=== PATIENT | female | born 1935 | race African-American/Black ===

== ENCOUNTER 2021-07-29 07:05 | Inpatient (IN) | payer MEDICARE, MEDICAID ==
[~2021-07-29] VITALS: Ht 167.6 cm; Wt 56.2 kg
[~2021-07-29 07:05] MED LIST: ALBUTEROL INH; ASPI-1073 PO; ATEN50TA PO; ATOR20TA PO; EVIS60 PO; FELO10TA45 PO; FURO-152 PO; KV10 PO; LEVO500T2 PO; MONT10TA21 PO; P20 PO; amlodipine PO
[2021-07-29 07:30] LABS: BASOPHILS % 0.3 % (0.0-2.0); EOSINOPHILS % 0.1 % (0.0-5.0); HEMATOCRIT. 35.6 % (36.0-48.0); HEMOGLOBIN. 11.9 g/dL (12.0-16.0); LYMPHOCYTES % 15.8 % (20.0-50.0); MEAN CORPUSCULAR HEMOGLOBIN 27.2 pg (28.0-32.0); MEAN CORPUSCULAR VOLUME 81.4 fL (81.0-99.0); MEAN PLATELET VOLUME 9.5 fl (7.4-10.4); MONOCYTES % 6.6 % (2.0-8.0); NEUTROPHILS % 77.2 % (40.0-76.0); PLATELET 164 x1000/uL (130-400); RED BLOOD CELL COUNT 4.38 mill/uL (4.2-5.4); RED CELL DISTRIBUTION WIDTH 19.6 % (11.6-14.6)
[2021-07-29 07:37] LABS: CHLORIDE 96 mEq/L (98-107)
[2021-07-29] MEDS ORDERED: METHYLPREDNISOLONE SOD SUCC 125 MG/2 ML VIAL IV STA (08:37)
[2021-07-29] MEDS: ASPIRIN 81MG TABLET PO ONE ×2 (08:45→08:53)
[2021-07-29] MEDS ORDERED: FUROSEMIDE 40MG/4ML VIAL IV ONE (08:45)
[2021-07-29 09:10] LABS: BG BASE EXCESS 23.4 mmol/L (-2.0-2.0); BG CARBOXYHEMOGLOBIN 0.4 % (0.5-1.5); BG DEOXYHEMOGLOBIN 8.2 % (0.0-5.0); BG FRACTION INSPIRED OXYGEN 40; BG HCO3 ACT 53.9 mmol/L (22.0-26.0); BG METHEMOGLOBIN 0.3 % (0.0-1.5); BG OXYGEN SATURATION 91.7 % (92.0-98.5); BG OXYHEMOGLOBIN 91.1 % (94.0-97.0); BG PH 7.367 (7.350-7.450); BG PO2 67.5 mmHg (75.0-100.0); BG SAMPLE SITE RIGHT RADIAL; BG TOTAL HEMOGLOBIN 12.3 g/dL (12.0-18.0); BG VENT MODE NASAL CANNULA
[2021-07-29 16:00] VITALS: BP 123/77
[2021-07-29] MEDS ORDERED: EVIS60 MT (16:15)
[2021-07-29] MEDS ORDERED: SENN-155 PO (16:15)
[2021-07-29] MEDS ORDERED: DIGO125T80 PO (16:15)
[2021-07-29] MEDS ORDERED: APIX2.5T PO (16:15)
[2021-07-29] MEDS ORDERED: PANT40TA51 PO (16:15)
[2021-07-29] MEDS ORDERED: METO-539 PO (16:16)
[2021-07-29 16:47] VITALS: BP 123/77
[2021-07-29] MEDS ORDERED: ONDANSETRON HCL 4MG/2ML INJ IV PRN (17:45)
[2021-07-29 18:00] VITALS: BP 101/58
[2021-07-29 19:06] LABS: INR 1.2; PROTHROMBIN TIME 12.8 sec (9.6-11.0)
[2021-07-29 20:00] VITALS: BP 124/66
[2021-07-29] MEDS: ENOXAPARIN 60MG/0.6ML SYR SUBCUT SCH (20:06)
[2021-07-29 22:00] VITALS: BP 145/70
[2021-07-29 23:55] VITALS: BP 99/62
[2021-07-30] VITALS (11 sets, daily range): BP systolic 109–172; BP diastolic 64–95
[2021-07-30 07:29] LABS: CHLORIDE 95 mEq/L (98-107)
[2021-07-30] MEDS: ENOXAPARIN 60MG/0.6ML SYR SUBCUT SCH ×2 (08:00→21:25)
[2021-07-30] MEDS ORDERED: FUROSEMIDE 40MG/4ML VIAL IVP SCH (09:00)
[2021-07-30] MEDS: SPIRONOLACTONE 25MG TABLET PO SCH (10:15)
[2021-07-30 12:50] LABS: BG BASE EXCESS 13.2 mmol/L (-2.0-2.0); BG CARBOXYHEMOGLOBIN 0.3 % (0.5-1.5); BG DEOXYHEMOGLOBIN 6.7 % (0.0-5.0); BG HCO3 ACT 39.3 mmol/L (22.0-26.0); BG METHEMOGLOBIN 0.6 % (0.0-1.5); BG OXYGEN SATURATION 93.2 % (92.0-98.5); BG OXYHEMOGLOBIN 92.4 % (94.0-97.0); BG PCO2 56.2 mmHg (35.0-45.0); BG PH 7.462 (7.350-7.450); BG PO2 68.9 mmHg (75.0-100.0); BG SAMPLE SITE RIGHT BRACHIAL; BG TOTAL HEMOGLOBIN 12.6 g/dL (12.0-18.0); BG VENT MODE MASK - BIPAP
[2021-07-30] MEDS: METHYLPREDNISOLONE SOD SUCC 40 MG/ML VIAL IV SCH ×2 (13:16→21:25)
[2021-07-30] MEDS: METOPROLOL TARTRATE 50MG TABLET PO SCH ×2 (15:04→21:25)
[2021-07-30] MEDS: FUROSEMIDE 40MG/4ML VIAL IVP SCH (18:08)
[2021-07-31] VITALS (12 sets, daily range): BP systolic 98–154; BP diastolic 56–103
[2021-07-31] MEDS: FUROSEMIDE 40MG/4ML VIAL IVP SCH ×2 (05:22→17:35)
[2021-07-31] MEDS: ENOXAPARIN 60MG/0.6ML SYR SUBCUT SCH ×2 (08:38→22:06)
[2021-07-31] MEDS: SPIRONOLACTONE 25MG TABLET PO SCH (08:39)
[2021-07-31] MEDS: METHYLPREDNISOLONE SOD SUCC 40 MG/ML VIAL IV SCH ×2 (08:39→22:01)
[2021-07-31] MEDS: METOPROLOL TARTRATE 50MG TABLET PO SCH (08:39)
[2021-07-31 16:32] LABS: BG BASE EXCESS 22.1 mmol/L (-2.0-2.0); BG CARBOXYHEMOGLOBIN 0.3 % (0.5-1.5); BG DEOXYHEMOGLOBIN 8.4 % (0.0-5.0); BG FRACTION INSPIRED OXYGEN 36; BG HCO3 ACT 50.5 mmol/L (22.0-26.0); BG METHEMOGLOBIN 0.1 % (0.0-1.5); BG OXYGEN SATURATION 91.6 % (92.0-98.5); BG OXYHEMOGLOBIN 91.2 % (94.0-97.0); BG PCO2 76.4 mmHg (35.0-45.0); BG PH 7.438 (7.350-7.450); BG PO2 68.4 mmHg (75.0-100.0); BG SAMPLE SITE RIGHT RADIAL; BG TOTAL HEMOGLOBIN 12.2 g/dL (12.0-18.0); BG VENT MODE NASAL CANNULA
[2021-07-31] MEDS: AMLODIPINE 5MG TABLET PO SCH (17:35)
[2021-07-31] MEDS: ACETAMINOPHEN 325MG TABLET PO PRN (23:20)
[2021-08-01] VITALS (12 sets, daily range): BP systolic 101–162; BP diastolic 69–118
[2021-08-01] MEDS: FUROSEMIDE 40MG/4ML VIAL IVP SCH ×2 (05:55→17:49)
[2021-08-01] MEDS: METHYLPREDNISOLONE SOD SUCC 40 MG/ML VIAL IV SCH ×2 (08:58→20:43)
[2021-08-01] MEDS: ENOXAPARIN 60MG/0.6ML SYR SUBCUT SCH ×2 (08:58→20:47)
[2021-08-01] MEDS: SPIRONOLACTONE 25MG TABLET PO SCH (09:00)
[2021-08-01] MEDS: AMLODIPINE 5MG TABLET PO SCH (09:00)
[2021-08-01 10:45] LABS: HEMOGLOBIN. 12.9 g/dL (12.0-16.0); MEAN CORPUSCULAR HEMOGLOBIN 26.9 pg (28.0-32.0); MEAN CORPUSCULAR VOLUME 81.3 fL (81.0-99.0); MEAN PLATELET VOLUME 9.5 fl (7.4-10.4); PLATELET 189 x1000/uL (130-400); RED CELL DISTRIBUTION WIDTH 19.7 % (11.6-14.6)
[2021-08-01 10:46] LABS: CHLORIDE 89 mEq/L (98-107)
[2021-08-01] MEDS: POTASSIUM CHLORIDE 20MEQ TABLET SR PO SCH ×3 (12:11→17:49)
[2021-08-01 15:34] LABS: BG BASE EXCESS 22.7 mmol/L (-2.0-2.0); BG CARBOXYHEMOGLOBIN 0.4 % (0.5-1.5); BG DEOXYHEMOGLOBIN 8.9 % (0.0-5.0); BG FRACTION INSPIRED OXYGEN 32; BG HCO3 ACT 49.9 mmol/L (22.0-26.0); BG METHEMOGLOBIN 0.4 % (0.0-1.5); BG OXYHEMOGLOBIN 90.3 % (94.0-97.0); BG PH 7.496 (7.350-7.450); BG SAMPLE SITE LEFT RADIAL; BG TOTAL HEMOGLOBIN 12.6 g/dL (12.0-18.0); BG VENT MODE NASAL CANNULA
[2021-08-01 16:51] LABS: PLATELET ESTIMATE NORMAL
[2021-08-02] VITALS (12 sets, daily range): BP systolic 118–159; BP diastolic 65–108
[2021-08-02] MEDS: FUROSEMIDE 40MG/4ML VIAL IVP SCH ×2 (06:16→11:11)
[2021-08-02 08:21] LABS: BG BASE EXCESS 26.8 mmol/L (-2.0-2.0); BG CARBOXYHEMOGLOBIN 0.5 % (0.5-1.5); BG DEOXYHEMOGLOBIN 4.1 % (0.0-5.0); BG FRACTION INSPIRED OXYGEN 40; BG HCO3 ACT 54.6 mmol/L (22.0-26.0); BG METHEMOGLOBIN 0.3 % (0.0-1.5); BG OXYGEN SATURATION 95.9 % (92.0-98.5); BG OXYHEMOGLOBIN 95.1 % (94.0-97.0); BG PCO2 68.6 mmHg (35.0-45.0); BG PH 7.519 (7.350-7.450); BG PO2 82.9 mmHg (75.0-100.0); BG SAMPLE SITE LEFT BRACHIAL; BG TOTAL HEMOGLOBIN 13.4 g/dL (12.0-18.0); BG TOTAL RESPIRATORY RATE 20 b/min; BG VENT MODE MASK - BIPAP
[2021-08-02] MEDS: METHYLPREDNISOLONE SOD SUCC 40 MG/ML VIAL IV SCH ×2 (08:50→20:54)
[2021-08-02] MEDS: ENOXAPARIN 60MG/0.6ML SYR SUBCUT SCH ×2 (08:50→20:54)
[2021-08-02] MEDS: AMLODIPINE 5MG TABLET PO SCH (08:50)
[2021-08-02] MEDS: SPIRONOLACTONE 25MG TABLET PO SCH (08:51)
[2021-08-02] MEDS ORDERED: POTASSIUM CHLORIDE 20MEQ/PACKET PO NR (11:00)
[2021-08-02 17:19] LABS: CHLORIDE 89 mEq/L (98-107)
[2021-08-03] VITALS (12 sets, daily range): BP systolic 104–159; BP diastolic 46–95
[2021-08-03] MEDS: ACETAMINOPHEN 325MG TABLET PO PRN (02:56)
[2021-08-03] MEDS: ENOXAPARIN 60MG/0.6ML SYR SUBCUT SCH ×2 (08:29→22:23)
[2021-08-03] MEDS: METHYLPREDNISOLONE SOD SUCC 40 MG/ML VIAL IV SCH ×2 (08:29→22:23)
[2021-08-03] MEDS: AMLODIPINE 5MG TABLET PO SCH (08:30)
[2021-08-03] MEDS: SPIRONOLACTONE 25MG TABLET PO SCH (08:30)
[2021-08-03] MEDS: FUROSEMIDE 40MG/4ML VIAL IVP SCH (08:30)
[2021-08-03] MEDS: METOPROLOL TARTRATE 25MG TABLET PO SCH ×2 (08:33→22:26)
[2021-08-03 09:07] LABS: BG BASE EXCESS 12.7 mmol/L (-2.0-2.0); BG CARBOXYHEMOGLOBIN 0.5 % (0.5-1.5); BG DEOXYHEMOGLOBIN 13.2 % (0.0-5.0); BG FRACTION INSPIRED OXYGEN 36; BG METHEMOGLOBIN 0.2 % (0.0-1.5); BG OXYGEN SATURATION 86.7 % (92.0-98.5); BG OXYHEMOGLOBIN 86.1 % (94.0-97.0); BG PCO2 58.1 mmHg (35.0-45.0); BG PH 7.445 (7.350-7.450); BG PO2 57.1 mmHg (75.0-100.0); BG SAMPLE SITE LEFT RADIAL; BG TOTAL HEMOGLOBIN 12.5 g/dL (12.0-18.0); BG VENT MODE NASAL CANNULA
[2021-08-04] VITALS (12 sets, daily range): BP systolic 108–131; BP diastolic 70–91
[2021-08-04] MEDS: SPIRONOLACTONE 25MG TABLET PO SCH (08:01)
[2021-08-04] MEDS: METOPROLOL TARTRATE 25MG TABLET PO SCH (08:02)
[2021-08-04] MEDS: AMLODIPINE 5MG TABLET PO SCH (08:02)
[2021-08-04] MEDS: FUROSEMIDE 40MG TABLET PO SCH (08:06)
[2021-08-04] MEDS: METHYLPREDNISOLONE SOD SUCC 40 MG/ML VIAL IV SCH (08:06)
[2021-08-04] MEDS: ENOXAPARIN 60MG/0.6ML SYR SUBCUT SCH ×2 (08:07→21:06)
[2021-08-04] MEDS ORDERED: PREDNISONE 20MG TABLET PO SCH (15:00)
[2021-08-04 16:57] LABS: BASOPHILS % 0.1 % (0.0-2.0); HEMOGLOBIN. 13.4 g/dL (12.0-16.0); LYMPHOCYTES % 13.8 % (20.0-50.0); MEAN CORPUSCULAR HEMOGLOBIN 26.9 pg (28.0-32.0); MEAN CORPUSCULAR VOLUME 80.2 fL (81.0-99.0); MONOCYTES % 8.9 % (2.0-8.0); NEUTROPHILS % 77.2 % (40.0-76.0); PLATELET 196 x1000/uL (130-400); RED BLOOD CELL COUNT 4.99 mill/uL (4.2-5.4); RED CELL DISTRIBUTION WIDTH 19.5 % (11.6-14.6)
[2021-08-04 17:03] LABS: CHLORIDE 88 mEq/L (98-107)
[2021-08-04] MEDS: IPRATROPIUM/ALBUTEROL 0.5-3(2.5)MG/3ML NEB HHN SCH (19:42)
[2021-08-05] VITALS (11 sets, daily range): BP systolic 89–131; BP diastolic 44–78
[2021-08-05] MEDS: IPRATROPIUM/ALBUTEROL 0.5-3(2.5)MG/3ML NEB HHN SCH ×3 (01:04→12:48)
[2021-08-05] MEDS: AMLODIPINE 5MG TABLET PO SCH (08:16)
[2021-08-05] MEDS: FUROSEMIDE 40MG TABLET PO SCH (08:48)
[2021-08-05] MEDS: ENOXAPARIN 60MG/0.6ML SYR SUBCUT SCH (08:49)
[2021-08-05] MEDS: SPIRONOLACTONE 25MG TABLET PO SCH (08:49)
[2021-08-05] MEDS ORDERED: PREDNISONE 20MG TABLET PO SCH (09:00)
[2021-08-06] MEDS ORDERED: PREDNISONE 20MG TABLET PO SCH (08:00)
== END 2021-08-05 20:20 | DRG 280 ==
LOC: ER 07:05 → 5EST 09:36 → EDBEDREQ 09:55 → EDBEDREQTM 09:55 → ENRESERV 13:01 → EDBEDREQSVC 14:59
PROVIDERS: ADMIT Internal Medicine; ATTEND Internal Medicine
PROC: 5A09557 Assistance with Respiratory Ventilation, Greater than 96 Consecutive Hours, Continuous Positive Airway Pressure (ICD-10-PCS; principal; 2021-07-29)
DX: I11.0 Hypertensive heart disease with heart failure (principal); I21.4 Non-ST elevation (NSTEMI) myocardial infarction; J96.21 Acute and chronic respiratory failure with hypoxia; J96.22 Acute and chronic respiratory failure with hypercapnia; I50.33 Acute on chronic diastolic (congestive) heart failure; E44.0 Moderate protein-calorie malnutrition; I48.20 Chronic atrial fibrillation, unspecified; E87.4 Mixed disorder of acid-base balance; D68.69 Other thrombophilia; J98.01 Acute bronchospasm; I34.0 Nonrheumatic mitral (valve) insufficiency; R13.10 Dysphagia, unspecified; R00.1 Bradycardia, unspecified; I27.20 Pulmonary hypertension, unspecified; Z20.822 Contact with and (suspected) exposure to COVID-19; R79.89 Other specified abnormal findings of blood chemistry; E78.5 Hyperlipidemia, unspecified; J44.9 Chronic obstructive pulmonary disease, unspecified; I16.0 Hypertensive urgency; K21.9 Gastro-esophageal reflux disease without esophagitis; I69.391 Dysphagia following cerebral infarction; Z68.20 Body mass index [BMI] 20.0-20.9, adult; Z79.899 Other long term (current) drug therapy
CPT/HCPCS: 36415; 36600; 71045; 80048; 80053; 82375; 82805; 83735; 83880; 84484; 85025; 87426; 93005; 93306; 94640; 94660; 99291; J1650; J1940; J2405; J2920; J2930; J7512

== ENCOUNTER 2021-08-10 09:35 | Inpatient (IN) | payer MEDICARE, MEDICAID ==
[~2021-08-10] VITALS: Ht 167.6 cm; Wt 49.9 kg
[~2021-08-10 09:35] MED LIST changes: +APIX2.5T PO; +DIGO125T80 PO; +EVIS60 MT; +METO-539 PO; +PANT40TA51 PO; +SENN-155 PO
[2021-08-10 10:43] LABS: BASOPHILS % 0.2 % (0.0-2.0); EOSINOPHILS % 0.5 % (0.0-5.0); HEMATOCRIT. 44.6 % (36.0-48.0); HEMOGLOBIN. 14.7 g/dL (12.0-16.0); LYMPHOCYTES % 10.8 % (20.0-50.0); MEAN CORPUSCULAR HEMOGLOBIN 26.5 pg (28.0-32.0); MEAN CORPUSCULAR VOLUME 80.6 fL (81.0-99.0); MEAN PLATELET VOLUME 8.8 fl (7.4-10.4); MONOCYTES % 7.8 % (2.0-8.0); NEUTROPHILS % 80.7 % (40.0-76.0); PLATELET 246 x1000/uL (130-400); RED BLOOD CELL COUNT 5.53 mill/uL (4.2-5.4)
[2021-08-10 10:48] LABS: CHLORIDE 93 mEq/L (98-107)
[2021-08-10] MEDS ORDERED: ASPIRIN 325MG EC TABLET PO NR (11:45)
[2021-08-10] MEDS ORDERED: ACETAZOLAMIDE SODIUM 500MG/VIAL IV NR (12:30)
[2021-08-10 13:35] LABS: BG BASE EXCESS 22.9 mmol/L (-2.0-2.0); BG CARBOXYHEMOGLOBIN 0.4 % (0.5-1.5); BG DEOXYHEMOGLOBIN 4.1 % (0.0-5.0); BG FRACTION INSPIRED OXYGEN 32; BG HCO3 ACT 50.9 mmol/L (22.0-26.0); BG METHEMOGLOBIN 0.4 % (0.0-1.5); BG OXYGEN SATURATION 95.9 % (92.0-98.5); BG OXYHEMOGLOBIN 95.1 % (94.0-97.0); BG PCO2 70.2 mmHg (35.0-45.0); BG PH 7.478 (7.350-7.450); BG PO2 94.5 mmHg (75.0-100.0); BG SAMPLE SITE RIGHT RADIAL; BG TOTAL HEMOGLOBIN 13.5 g/dL (12.0-18.0); BG VENT MODE NASAL CANNULA
[2021-08-10] MEDS ORDERED: LEVOFLOXACIN 750MG PREMIX 150 ML IV NR (14:00)
[2021-08-10 22:28] VITALS: BP 94/58
[2021-08-11] VITALS: BP 97/53
[2021-08-11] MEDS ORDERED: IPRATROPIUM/ALBUTEROL 0.5-3(2.5)MG/3ML NEB HHN PRN (01:30)
[2021-08-11 04:00] VITALS: BP 104/62
[2021-08-11 07:11] LABS: CHLORIDE 97 mEq/L (98-107)
[2021-08-11 07:22] LABS: HEMATOCRIT. 37.5 % (36.0-48.0); HEMOGLOBIN. 12.1 g/dL (12.0-16.0); MEAN CORPUSCULAR HEMOGLOBIN 26.3 pg (28.0-32.0); MEAN CORPUSCULAR VOLUME 81.2 fL (81.0-99.0); MEAN PLATELET VOLUME 9.3 fl (7.4-10.4); PLATELET 244 x1000/uL (130-400); RED BLOOD CELL COUNT 4.62 mill/uL (4.2-5.4); RED CELL DISTRIBUTION WIDTH 20.1 % (11.6-14.6)
[2021-08-11 08:00] VITALS: BP 104/69
[2021-08-11] MEDS: FUROSEMIDE 40MG/4ML VIAL IVP SCH (08:56)
[2021-08-11] MEDS: APIXABAN 2.5 MG TABLET PO SCH ×2 (08:56→17:33)
[2021-08-11] MEDS: DIGOXIN 125MCG TABLET PO SCH (08:56)
[2021-08-11] MEDS: ATORVASTATIN CALCIUM 20MG TABLET PO SCH (08:56)
[2021-08-11] MEDS: ATENOLOL 50 MG TABLET PO SCH (08:57)
[2021-08-11] MEDS ORDERED: POTASSIUM CHLORIDE INJ 40 MEQ in DEXT 5% WATER 250 ML IV NR (09:00)
[2021-08-11] MEDS ORDERED: LEVOFLOXACIN 500MG PREMIX 100 ML IV SCH (09:00)
[2021-08-11 11:02] LABS: BG BASE EXCESS 15.8 mmol/L (-2.0-2.0); BG CARBOXYHEMOGLOBIN 0.8 % (0.5-1.5); BG DEOXYHEMOGLOBIN 9.3 % (0.0-5.0); BG FRACTION INSPIRED OXYGEN 32; BG HCO3 ACT 40.9 mmol/L (22.0-26.0); BG METHEMOGLOBIN 0.3 % (0.0-1.5); BG OXYGEN SATURATION 90.6 % (92.0-98.5); BG OXYHEMOGLOBIN 89.6 % (94.0-97.0); BG PCO2 50.8 mmHg (35.0-45.0); BG PH 7.524 (7.350-7.450); BG PO2 60.3 mmHg (75.0-100.0); BG SAMPLE SITE RIGHT BRACHIAL; BG TOTAL HEMOGLOBIN 13.4 g/dL (12.0-18.0); BG VENT MODE NASAL CANNULA
[2021-08-11 11:46] VITALS: BP 92/50
[2021-08-11 16:00] VITALS: BP 103/63
[2021-08-11 18:37] LABS: VITAMIN B12 SERUM 1568 pg/mL (211-911)
[2021-08-11 20:00] VITALS: BP 99/54
[2021-08-11] MEDS ORDERED: ACETAZOLAMIDE SODIUM 500MG/VIAL IV NR (21:00)
[2021-08-11 21:45] LABS: PLATELET ESTIMATE NORMAL
[2021-08-12] VITALS (7 sets, daily range): BP systolic 91–132; BP diastolic 52–73
[2021-08-12] MEDS: ACETYLCYSTEINE 100MG/ML 10% VIAL 4ML INH SCH ×3 (04:08→14:35)
[2021-08-12] MEDS: IPRATROPIUM/ALBUTEROL 0.5-3(2.5)MG/3ML NEB HHN SCH ×4 (04:08→19:49)
[2021-08-12 09:17] LABS: BG BASE EXCESS 12.2 mmol/L (-2.0-2.0); BG CARBOXYHEMOGLOBIN 0.6 % (0.5-1.5); BG DEOXYHEMOGLOBIN 3.6 % (0.0-5.0); BG FRACTION INSPIRED OXYGEN 28; BG HCO3 ACT 38.7 mmol/L (22.0-26.0); BG METHEMOGLOBIN 0.4 % (0.0-1.5); BG OXYGEN SATURATION 96.4 % (92.0-98.5); BG OXYHEMOGLOBIN 95.4 % (94.0-97.0); BG PCO2 58.3 mmHg (35.0-45.0); BG PO2 91.7 mmHg (75.0-100.0); BG SAMPLE SITE RIGHT BRACHIAL; BG TOTAL HEMOGLOBIN 13.2 g/dL (12.0-18.0); BG VENT MODE NASAL CANNULA
[2021-08-12] MEDS: BUDESONIDE 0.5MG/2ML NEB HHN SCH ×2 (09:28→19:49)
[2021-08-12] MEDS: DIGOXIN 125MCG TABLET PO SCH (09:51)
[2021-08-12] MEDS: APIXABAN 2.5 MG TABLET PO SCH ×2 (09:51→16:34)
[2021-08-12] MEDS: ATENOLOL 50 MG TABLET PO SCH (09:51)
[2021-08-12] MEDS: ATORVASTATIN CALCIUM 20MG TABLET PO SCH (09:51)
[2021-08-12] MEDS: FUROSEMIDE 40MG/4ML VIAL IVP SCH (10:54)
[2021-08-12] MEDS ORDERED: LEVOFLOXACIN 750MG PREMIX 150 ML IV SCH ×2 (11:00→15:00)
[2021-08-12 17:33] LABS: CHLORIDE 99 mEq/L (98-107)
[2021-08-13] VITALS: BP 99/58
[2021-08-13] MEDS: IPRATROPIUM/ALBUTEROL 0.5-3(2.5)MG/3ML NEB HHN SCH (00:32)
[2021-08-13] MEDS: ACETYLCYSTEINE 100MG/ML 10% VIAL 4ML INH SCH (00:33)
[2021-08-13] MEDS ORDERED: FUROSEMIDE 40MG TABLET PO SCH (09:00)
[2021-08-13] MEDS ORDERED: DIGOXIN 125MCG TABLET PO SCH (18:00)
[2021-08-13] MEDS ORDERED: ATORVASTATIN CALCIUM 20MG TABLET PO SCH (21:00)
== END 2021-08-13 01:00 | DRG 189 ==
LOC: ER 09:35 → 6WST 14:36 → EDBEDREQ 14:50 → EDBEDREQTM 14:50 → ENRESERV 17:02 → 6WST 08-11 04:30
PROVIDERS: ADMIT Internal Medicine; ATTEND Internal Medicine
DX: J96.01 Acute respiratory failure with hypoxia (principal); I50.33 Acute on chronic diastolic (congestive) heart failure; E44.0 Moderate protein-calorie malnutrition; G93.40 Encephalopathy, unspecified; I48.20 Chronic atrial fibrillation, unspecified; J44.0 Chronic obstructive pulmonary disease with (acute) lower respiratory infection; J96.02 Acute respiratory failure with hypercapnia; I11.0 Hypertensive heart disease with heart failure; E78.5 Hyperlipidemia, unspecified; E87.6 Hypokalemia; I34.0 Nonrheumatic mitral (valve) insufficiency; F03.90 Unspecified dementia, unspecified severity, without behavioral disturbance, psychotic disturbance, mood disturbance, and anxiety; R00.1 Bradycardia, unspecified; L89.156 Pressure-induced deep tissue damage of sacral region; R13.10 Dysphagia, unspecified; K21.9 Gastro-esophageal reflux disease without esophagitis; Z79.2 Long term (current) use of antibiotics; Z79.899 Other long term (current) drug therapy; Z79.01 Long term (current) use of anticoagulants; I69.391 Dysphagia following cerebral infarction
CPT/HCPCS: 36415; 36600; 70551; 71045; 80048; 80053; 82040; 82375; 82607; 82805; 83735; 83880; 84132; 84134; 84443; 84484; 85025; 93005; 94640; 99291; J1120; J1940; J1956; J3480; J7040; J7060; J7608; J7626

== ENCOUNTER 2022-03-20 13:13 | Inpatient (IN) | payer OTHER, MEDICAID ==
[2022-03-20] VITALS (12 sets, daily range): BP systolic 124–155; BP diastolic 66–118
[~2022-03-20] VITALS: Ht 165.1 cm; Wt 64.0 kg
[2022-03-20] MEDS ORDERED: METHYLPREDNISOLONE SOD SUCC 125 MG/2 ML VIAL IV STA (13:29)
[2022-03-20] MEDS ORDERED: ALBUTEROL 6.7GM HFA INHALER ORI ONE (13:30)
[2022-03-20] MEDS ORDERED: SODIUM CHLORIDE 0.9% 250 ML IV ONE (13:30)
[2022-03-20 14:17] LABS: HEMATOCRIT. 42.8 % (36.0-48.0); HEMOGLOBIN. 14.5 g/dL (12.0-16.0); MEAN CORPUSCULAR HEMOGLOBIN 30.8 pg (28.0-32.0); MEAN CORPUSCULAR VOLUME 91.2 fL (81.0-99.0); MEAN PLATELET VOLUME 9.4 fl (7.4-10.4); PLATELET 191 x1000/uL (130-400); RED BLOOD CELL COUNT 4.69 mill/uL (4.2-5.4); RED CELL DISTRIBUTION WIDTH 16.8 % (11.6-14.6)
[2022-03-20 14:20] LABS: CHLORIDE 98 mEq/L (98-107)
[2022-03-20] MEDS ORDERED: VANCOMYCIN 1G PREMIX 200 ML IV ONE (14:30)
[2022-03-20] MEDS ORDERED: PIPERACILLIN/TAZ 3.375G PREMIX 50 ML IV ONE (14:30)
[2022-03-20 14:50] LABS: PLATELET ESTIMATE NORMAL
[2022-03-20] MEDS ORDERED: ASPIRIN 81MG TABLET PO ONE (15:00)
[2022-03-20] MEDS ORDERED: VANCOMYCIN 1GM PMX (XELLIA) 200 ML IV SCH (15:00)
[2022-03-20 15:23] LABS: CLARITY URINE CLOUDY (CLEAR); COLOR URINE DARK YELLOW (YELLOW); KETONES URINE TRACE (NEGATIVE); LEUKOCYTE ESTERASE URINE TRACE (NEGATIVE); NITRITE URINE NEGATIVE (NEGATIVE); OCCULT BLOOD URINE NEGATIVE (NEGATIVE); PH URINE 5.5 (4.5-8.0); PROTEIN URINE 2+ (NEGATIVE); SPECIFIC GRAVITY URINE 1.024 (1.005-1.030)
[2022-03-20 15:31] LABS: BG CARBOXYHEMOGLOBIN 0.3 % (0.5-1.5); BG DEOXYHEMOGLOBIN 3.8 % (0.0-5.0); BG FRACTION INSPIRED OXYGEN 100; BG HCO3 ACT 37.2 mmol/L (22.0-26.0); BG METHEMOGLOBIN 0.5 % (0.0-1.5); BG OXYGEN SATURATION 96.2 % (92.0-98.5); BG OXYHEMOGLOBIN 95.4 % (94.0-97.0); BG PCO2 49.8 mmHg (35.0-45.0); BG PH 7.491 (7.350-7.450); BG PO2 90.2 mmHg (75.0-100.0); BG SAMPLE SITE RIGHT RADIAL; BG TOTAL HEMOGLOBIN 14.2 g/dL (12.0-18.0); BG TOTAL RESPIRATORY RATE 23 b/min; BG VENT MODE MASK - BIPAP
[2022-03-20 16:58] LABS: INR 1.3; PROTHROMBIN TIME 13.5 sec (9.6-11.0)
[2022-03-20] MEDS ORDERED: CLONIDINE 0.1MG TABLET PO PRN (23:45)
[2022-03-21] VITALS (45 sets, daily range): BP systolic 86–158; BP diastolic 37–96
[2022-03-21] MEDS ORDERED: NALOXONE HCL 0.4MG/ML VIAL IV PRN (00:15)
[2022-03-21] MEDS: SODIUM CHLORIDE 0.45% 1,000 ML IV SCH ×2 (00:27→15:51)
[2022-03-21] MEDS: PIPERACILLIN/TAZOBACTAM 3.375 G in DEXTROSE 5% WATER 50 ML IV SCH ×3 (01:26→20:28)
[2022-03-21 04:48] LABS: HEMATOCRIT. 37.4 % (36.0-48.0); HEMOGLOBIN. 12.6 g/dL (12.0-16.0); MEAN CORPUSCULAR HEMOGLOBIN 30.5 pg (28.0-32.0); MEAN CORPUSCULAR VOLUME 90.6 fL (81.0-99.0); MEAN PLATELET VOLUME 9.5 fl (7.4-10.4); PLATELET 166 x1000/uL (130-400); RED BLOOD CELL COUNT 4.12 mill/uL (4.2-5.4)
[2022-03-21 04:59] LABS: CHLORIDE 101 mEq/L (98-107)
[2022-03-21] MEDS: PANTOPRAZOLE 40MG DR TABLET PO SCH (05:31)
[2022-03-21] MEDS: IPRATROPIUM BROMIDE (0.02%) 0.5MG/2.5ML NEB HHN SCH ×4 (08:07→20:43)
[2022-03-21] MEDS: APIXABAN 2.5 MG TABLET PO SCH ×2 (08:44→17:33)
[2022-03-21] MEDS: METOPROLOL TARTRATE 50MG TABLET PO SCH ×2 (08:45→20:26)
[2022-03-21] MEDS ORDERED: FUROSEMIDE 40MG/4ML VIAL IVP SCH (09:00)
[2022-03-21] MEDS ORDERED: FUROSEMIDE 40MG TABLET PO SCH (09:00)
[2022-03-21] MEDS ORDERED: FUROSEMIDE 20MG TABLET PO SCH (09:00)
[2022-03-21] MEDS ORDERED: ATENOLOL 50 MG TABLET PO SCH (09:00)
[2022-03-21] MEDS ORDERED: PREDNISONE 20MG TABLET PO SCH (09:00)
[2022-03-21 09:40] LABS: T4 FREE 1.28 ng/dL (0.76-1.46)
[2022-03-21 12:24] LABS: NUCLEATED RED BLOOD CELLS 1 /100 WBC; PLATELET ESTIMATE NORMAL
[2022-03-21 13:40] LABS: BG CARBOXYHEMOGLOBIN 0.3 % (0.5-1.5); BG DEOXYHEMOGLOBIN 6.5 % (0.0-5.0); BG FRACTION INSPIRED OXYGEN 36; BG HCO3 ACT 28.6 mmol/L (22.0-26.0); BG METHEMOGLOBIN 0.1 % (0.0-1.5); BG OXYGEN SATURATION 93.5 % (92.0-98.5); BG OXYHEMOGLOBIN 93.1 % (94.0-97.0); BG PCO2 38.5 mmHg (35.0-45.0); BG PH 7.489 (7.350-7.450); BG PO2 68.2 mmHg (75.0-100.0); BG SAMPLE SITE RIGHT RADIAL; BG TOTAL HEMOGLOBIN 12.9 g/dL (12.0-18.0); BG VENT MODE NASAL CANNULA
[2022-03-21 15:05] LABS: CREATINE KINASE MB FRACTION 4.8 ng/mL (0.5-3.6)
[2022-03-21] MEDS: DIGOXIN 125MCG TABLET PO SCH (17:33)
[2022-03-21] MEDS: SENNOSIDES 8.6MG TABLET PO SCH (20:27)
[2022-03-21] MEDS: MONTELUKAST SODIUM 10MG TABLET PO SCH (20:27)
[2022-03-22] VITALS (78 sets, daily range): BP systolic 70–145; BP diastolic 36–102
[2022-03-22 00:25] LABS: CREATINE KINASE MB FRACTION 3.6 ng/mL (0.5-3.6)
[2022-03-22] MEDS: IPRATROPIUM BROMIDE (0.02%) 0.5MG/2.5ML NEB HHN SCH ×5 (02:17→20:30)
[2022-03-22] MEDS: SODIUM CHLORIDE 0.45% 1,000 ML IV SCH (05:05)
[2022-03-22] MEDS: PIPERACILLIN/TAZOBACTAM 3.375 G in DEXTROSE 5% WATER 50 ML IV SCH ×3 (05:06→21:23)
[2022-03-22] MEDS: PANTOPRAZOLE 40MG DR TABLET PO SCH (05:32)
[2022-03-22 06:08] LABS: HEMATOCRIT. 36.6 % (36.0-48.0); HEMOGLOBIN. 12.2 g/dL (12.0-16.0); MEAN CORPUSCULAR HEMOGLOBIN 30.2 pg (28.0-32.0); MEAN CORPUSCULAR VOLUME 90.5 fL (81.0-99.0); MEAN PLATELET VOLUME 9.3 fl (7.4-10.4); PLATELET 160 x1000/uL (130-400); RED BLOOD CELL COUNT 4.05 mill/uL (4.2-5.4); RED CELL DISTRIBUTION WIDTH 16.8 % (11.6-14.6)
[2022-03-22 06:39] LABS: CHLORIDE 98 mEq/L (98-107); CREATINE KINASE 46 IU/L (26-192); CREATINE KINASE MB FRACTION 3.5 ng/mL (0.5-3.6)
[2022-03-22 08:17] LABS: PHOSPHORUS 2.5 mg/dL (2.5-4.9)
[2022-03-22] MEDS ORDERED: POTASSIUM CHLORIDE 20MEQ/PACKET PO SCH (09:00)
[2022-03-22] MEDS: METOPROLOL TARTRATE 50MG TABLET PO SCH ×2 (09:00→21:00)
[2022-03-22] MEDS: APIXABAN 2.5 MG TABLET PO SCH ×2 (09:19→17:32)
[2022-03-22 09:35] LABS: BG BASE EXCESS 8.6 mmol/L (-2.0-2.0); BG CARBOXYHEMOGLOBIN 0.2 % (0.5-1.5); BG DEOXYHEMOGLOBIN 5.6 % (0.0-5.0); BG FRACTION INSPIRED OXYGEN 32; BG HCO3 ACT 32.6 mmol/L (22.0-26.0); BG METHEMOGLOBIN 0.5 % (0.0-1.5); BG OXYGEN SATURATION 94.4 % (92.0-98.5); BG OXYHEMOGLOBIN 93.7 % (94.0-97.0); BG PCO2 42.6 mmHg (35.0-45.0); BG PH 7.502 (7.350-7.450); BG PO2 76.6 mmHg (75.0-100.0); BG SAMPLE SITE RIGHT RADIAL; BG TOTAL HEMOGLOBIN 14.2 g/dL (12.0-18.0); BG VENT MODE NASAL CANNULA
[2022-03-22] MEDS: HYDROCODONE/ACETAMINOPHEN 5/325MG TABLET PO PRN (09:49)
[2022-03-22 11:28] LABS: NUCLEATED RED BLOOD CELLS 2 /100 WBC; PLATELET ESTIMATE NORMAL
[2022-03-22] MEDS: PHENYLEPHRINE 100 MG in DEXT 5% WATER 240 ML IV PRN (11:31)
[2022-03-22] MEDS: AMIODARONE HCL 900 MG in DEXT 5% WATER 482 ML IV SCH (11:36)
[2022-03-22] MEDS ORDERED: LIDOCAINE HCL 1% 10 MG/ML 10ML VIAL ONE (13:32)
[2022-03-22] MEDS: DIGOXIN 125MCG TABLET PO SCH (17:32)
[2022-03-22] MEDS: SENNOSIDES 8.6MG TABLET PO SCH (21:21)
[2022-03-22] MEDS: MONTELUKAST SODIUM 10MG TABLET PO SCH (21:21)
[2022-03-23] VITALS (96 sets, daily range): BP systolic 85–167; BP diastolic 20–115
[2022-03-23] MEDS: SODIUM CHLORIDE 0.45% 1,000 ML IV SCH ×2 (00:05→21:12)
[2022-03-23] MEDS: IPRATROPIUM BROMIDE (0.02%) 0.5MG/2.5ML NEB HHN SCH ×4 (02:03→20:35)
[2022-03-23] MEDS: AMIODARONE HCL 900 MG in DEXT 5% WATER 482 ML IV SCH ×2 (02:09→16:02)
[2022-03-23] MEDS: ONDANSETRON HCL 4MG/2ML INJ IV PRN (02:55)
[2022-03-23 06:19] LABS: HEMATOCRIT. 39.1 % (36.0-48.0); HEMOGLOBIN. 13.1 g/dL (12.0-16.0); MEAN CORPUSCULAR HEMOGLOBIN 30.6 pg (28.0-32.0); MEAN CORPUSCULAR VOLUME 91.4 fL (81.0-99.0); MEAN PLATELET VOLUME 8.9 fl (7.4-10.4); PLATELET 154 x1000/uL (130-400); RED BLOOD CELL COUNT 4.28 mill/uL (4.2-5.4); RED CELL DISTRIBUTION WIDTH 17.3 % (11.6-14.6)
[2022-03-23 06:29] LABS: CHLORIDE 94 mEq/L (98-107)
[2022-03-23] MEDS: PIPERACILLIN/TAZOBACTAM 3.375 G in DEXTROSE 5% WATER 50 ML IV SCH ×3 (06:35→21:11)
[2022-03-23 06:36] LABS: PHOSPHORUS 1.4 mg/dL (2.5-4.9)
[2022-03-23] MEDS: PANTOPRAZOLE 40MG DR TABLET PO SCH (06:36)
[2022-03-23] MEDS: PHENYLEPHRINE 100 MG in DEXT 5% WATER 240 ML IV PRN (07:29)
[2022-03-23 09:25] LABS: BG BASE EXCESS 9.4 mmol/L (-2.0-2.0); BG CARBOXYHEMOGLOBIN 0.1 % (0.5-1.5); BG DEOXYHEMOGLOBIN 3.5 % (0.0-5.0); BG METHEMOGLOBIN 0.3 % (0.0-1.5); BG OXYGEN SATURATION 96.5 % (92.0-98.5); BG OXYHEMOGLOBIN 96.1 % (94.0-97.0); BG PCO2 40.9 mmHg (35.0-45.0); BG PH 7.525 (7.350-7.450); BG PO2 86.5 mmHg (75.0-100.0); BG SAMPLE SITE RIGHT RADIAL; BG TOTAL HEMOGLOBIN 13.7 g/dL (12.0-18.0); BG VENT MODE NASAL CANNULA
[2022-03-23] MEDS: APIXABAN 2.5 MG TABLET PO SCH ×2 (09:29→17:02)
[2022-03-23] MEDS: METOPROLOL TARTRATE 50MG TABLET PO SCH ×2 (09:29→21:11)
[2022-03-23] MEDS ORDERED: SODIUM PHOS,M-BASIC-D-BASIC 30 MM in DEXT 5% WATER 500 ML IV NR (09:30)
[2022-03-23] MEDS ORDERED: POLYETHYLENE GLYCOL 3350 (17GM) 1 DOSE PACK PO PRN (10:45)
[2022-03-23] MEDS: AMIODARONE HCL 200 MG TABLET PO SCH ×2 (11:40→21:09)
[2022-03-23 13:49] LABS: PLATELET ESTIMATE NORMAL
[2022-03-23] MEDS ORDERED: ACETAZOLAMIDE SODIUM 500MG/VIAL IV SCH (16:00)
[2022-03-23] MEDS: SENNOSIDES 8.6MG TABLET PO SCH (21:08)
[2022-03-23] MEDS: MONTELUKAST SODIUM 10MG TABLET PO SCH (21:09)
[2022-03-23] MEDS: ARIPIPRAZOLE 5MG TABLET PO SCH (21:09)
[2022-03-23] MEDS: HYDROCODONE/ACETAMINOPHEN 5/325MG TABLET PO PRN (21:10)
[2022-03-24] VITALS (97 sets, daily range): BP systolic 83–221; BP diastolic 23–144
[2022-03-24] MEDS: IPRATROPIUM BROMIDE (0.02%) 0.5MG/2.5ML NEB HHN SCH ×5 (00:40→21:04)
[2022-03-24] MEDS: PIPERACILLIN/TAZOBACTAM 3.375 G in DEXTROSE 5% WATER 50 ML IV SCH ×3 (05:02→21:36)
[2022-03-24 05:42] LABS: HEMATOCRIT. 40.1 % (36.0-48.0); HEMOGLOBIN. 13.4 g/dL (12.0-16.0); MEAN CORPUSCULAR HEMOGLOBIN 30.7 pg (28.0-32.0); MEAN CORPUSCULAR VOLUME 91.5 fL (81.0-99.0); MEAN PLATELET VOLUME 9.3 fl (7.4-10.4); PLATELET 141 x1000/uL (130-400); RED BLOOD CELL COUNT 4.38 mill/uL (4.2-5.4); RED CELL DISTRIBUTION WIDTH 17.2 % (11.6-14.6)
[2022-03-24] MEDS: PANTOPRAZOLE 40MG DR TABLET PO SCH (05:43)
[2022-03-24 05:58] LABS: CHLORIDE 96 mEq/L (98-107)
[2022-03-24 06:10] LABS: PHOSPHORUS 3.1 mg/dL (2.5-4.9)
[2022-03-24] MEDS: AMIODARONE HCL 900 MG in DEXT 5% WATER 482 ML IV SCH (07:03)
[2022-03-24] MEDS ORDERED: POTASSIUM CHLORIDE 20MEQ/PACKET PO NR (08:00)
[2022-03-24] MEDS: ARIPIPRAZOLE 5MG TABLET PO SCH (08:09)
[2022-03-24] MEDS: APIXABAN 2.5 MG TABLET PO SCH ×2 (08:09→17:25)
[2022-03-24] MEDS: METOPROLOL TARTRATE 50MG TABLET PO SCH ×2 (08:09→21:00)
[2022-03-24] MEDS: AMIODARONE HCL 200 MG TABLET PO SCH ×2 (08:09→17:24)
[2022-03-24 09:09] LABS: PLATELET ESTIMATE NORMAL
[2022-03-24 09:20] LABS: BG BASE EXCESS 5.8 mmol/L (-2.0-2.0); BG CARBOXYHEMOGLOBIN 0.3 % (0.5-1.5); BG DEOXYHEMOGLOBIN 6.2 % (0.0-5.0); BG FRACTION INSPIRED OXYGEN 40; BG HCO3 ACT 30.5 mmol/L (22.0-26.0); BG METHEMOGLOBIN 0.4 % (0.0-1.5); BG OXYGEN SATURATION 93.8 % (92.0-98.5); BG OXYHEMOGLOBIN 93.1 % (94.0-97.0); BG PCO2 44.8 mmHg (35.0-45.0); BG PH 7.451 (7.350-7.450); BG PO2 72.1 mmHg (75.0-100.0); BG SAMPLE SITE RIGHT RADIAL; BG TOTAL HEMOGLOBIN 12.6 g/dL (12.0-18.0); BG VENT MODE NASAL CANNULA
[2022-03-24] MEDS: MIDODRINE HCL 5MG TABLET PO SCH ×2 (13:01→17:24)
[2022-03-24] MEDS: PHENYLEPHRINE 100 MG in DEXT 5% WATER 240 ML IV PRN (13:13)
[2022-03-24] MEDS: SODIUM CHLORIDE 0.45% 1,000 ML IV SCH (17:25)
[2022-03-24] MEDS: HYDROCODONE/ACETAMINOPHEN 5/325MG TABLET PO PRN (20:05)
[2022-03-24] MEDS: MONTELUKAST SODIUM 10MG TABLET PO SCH (21:33)
[2022-03-24] MEDS: SENNOSIDES 8.6MG TABLET PO SCH (21:35)
[2022-03-25] VITALS (50 sets, daily range): BP systolic 71–138; BP diastolic 45–105
[2022-03-25] MEDS: IPRATROPIUM BROMIDE (0.02%) 0.5MG/2.5ML NEB HHN SCH ×5 (00:01→20:23)
[2022-03-25] MEDS: HYDROCODONE/ACETAMINOPHEN 5/325MG TABLET PO PRN ×2 (04:54→11:33)
[2022-03-25] MEDS: PIPERACILLIN/TAZOBACTAM 3.375 G in DEXTROSE 5% WATER 50 ML IV SCH ×3 (05:27→22:10)
[2022-03-25] MEDS: PANTOPRAZOLE 40MG DR TABLET PO SCH (05:30)
[2022-03-25 06:09] LABS: HEMATOCRIT. 32.6 % (36.0-48.0); HEMOGLOBIN. 11.1 g/dL (12.0-16.0); MEAN CORPUSCULAR HEMOGLOBIN 30.7 pg (28.0-32.0); MEAN CORPUSCULAR VOLUME 90.1 fL (81.0-99.0); MEAN PLATELET VOLUME 9.2 fl (7.4-10.4); PLATELET 119 x1000/uL (130-400); RED BLOOD CELL COUNT 3.62 mill/uL (4.2-5.4); RED CELL DISTRIBUTION WIDTH 17.4 % (11.6-14.6)
[2022-03-25 06:13] LABS: CHLORIDE 100 mEq/L (98-107)
[2022-03-25] MEDS ORDERED: POTASSIUM CHLORIDE INJ 60 MEQ in DEXT 5% WATER 250 ML IV ONE (06:45)
[2022-03-25] MEDS: KCL 20MEQ/100ML X 3 FOR TOTAL KCL 60MEQ/300ML IV SCH ×3 (08:27→12:24)
[2022-03-25 08:32] LABS: BG BASE EXCESS 4.7 mmol/L (-2.0-2.0); BG CARBOXYHEMOGLOBIN 0.3 % (0.5-1.5); BG DEOXYHEMOGLOBIN 2.2 % (0.0-5.0); BG HCO3 ACT 29.1 mmol/L (22.0-26.0); BG METHEMOGLOBIN 0.3 % (0.0-1.5); BG OXYGEN SATURATION 97.8 % (92.0-98.5); BG OXYHEMOGLOBIN 97.2 % (94.0-97.0); BG PCO2 42.8 mmHg (35.0-45.0); BG PH 7.451 (7.350-7.450); BG PO2 116.2 mmHg (75.0-100.0); BG SAMPLE SITE RIGHT RADIAL; BG TOTAL HEMOGLOBIN 12.1 g/dL (12.0-18.0); BG VENT MODE NASAL CANNULA
[2022-03-25] MEDS: METOPROLOL TARTRATE 50MG TABLET PO SCH ×2 (09:31→21:00)
[2022-03-25] MEDS: ZINC SULFATE 220 MG ( 50 ) CAPSULE PO SCH (09:31)
[2022-03-25] MEDS: ARIPIPRAZOLE 5MG TABLET PO SCH (09:32)
[2022-03-25] MEDS: APIXABAN 2.5 MG TABLET PO SCH ×2 (09:32→17:08)
[2022-03-25] MEDS: AMIODARONE HCL 200 MG TABLET PO SCH ×2 (09:32→17:08)
[2022-03-25] MEDS: ASCORBIC ACID 500 MG TABLET PO SCH (09:32)
[2022-03-25] MEDS: MIDODRINE HCL 5MG TABLET PO SCH ×3 (09:38→17:08)
[2022-03-25 09:50] LABS: PHOSPHORUS 1.5 mg/dL (2.5-4.9)
[2022-03-25] MEDS: SODIUM CHLORIDE 0.45% 1,000 ML IV SCH (12:25)
[2022-03-25 12:38] LABS: PLATELET ESTIMATE SLIGHTLY DECREASED
[2022-03-25] MEDS: AZITHROMYCIN 500 MG in DEXT 5% WATER 250 ML IV SCH (19:33)
[2022-03-25] MEDS: SODIUM CHLORIDE 10% FOR INH 15ML VIAL NEB INH NR ×2 (20:24→22:10)
[2022-03-25] MEDS: MONTELUKAST SODIUM 10MG TABLET PO SCH (22:10)
[2022-03-25] MEDS: SENNOSIDES 8.6MG TABLET PO SCH (22:11)
[2022-03-26] VITALS (34 sets, daily range): BP systolic 92–141; BP diastolic 40–88
[2022-03-26] MEDS: IPRATROPIUM BROMIDE (0.02%) 0.5MG/2.5ML NEB HHN SCH ×5 (00:17→21:24)
[2022-03-26] MEDS ORDERED: HALOPERIDOL LACTATE 5MG/ML VIAL IM NR (01:15)
[2022-03-26 04:53] LABS: HEMOGLOBIN. 13.3 g/dL (12.0-16.0); MEAN CORPUSCULAR VOLUME 90.4 fL (81.0-99.0); MEAN PLATELET VOLUME 8.9 fl (7.4-10.4); PLATELET 142 x1000/uL (130-400); RED BLOOD CELL COUNT 4.43 mill/uL (4.2-5.4); RED CELL DISTRIBUTION WIDTH 17.1 % (11.6-14.6)
[2022-03-26 05:10] LABS: CHLORIDE 102 mEq/L (98-107)
[2022-03-26 05:27] LABS: PHOSPHORUS 1.7 mg/dL (2.5-4.9)
[2022-03-26] MEDS: PANTOPRAZOLE 40MG DR TABLET PO SCH (05:58)
[2022-03-26] MEDS: MIDODRINE HCL 5MG TABLET PO SCH ×3 (09:00→17:51)
[2022-03-26] MEDS: ARIPIPRAZOLE 5MG TABLET PO SCH (09:05)
[2022-03-26] MEDS: ZINC SULFATE 220 MG ( 50 ) CAPSULE PO SCH (09:05)
[2022-03-26] MEDS: APIXABAN 2.5 MG TABLET PO SCH ×2 (09:06→17:50)
[2022-03-26] MEDS: AMIODARONE HCL 200 MG TABLET PO SCH ×2 (09:06→17:50)
[2022-03-26] MEDS: METOPROLOL TARTRATE 50MG TABLET PO SCH ×2 (09:06→21:00)
[2022-03-26] MEDS: ASCORBIC ACID 500 MG TABLET PO SCH (09:06)
[2022-03-26] MEDS: SODIUM CHLORIDE 0.45% 1,000 ML IV SCH (09:44)
[2022-03-26] MEDS ORDERED: SODIUM PHOS,M-BASIC-D-BASIC 20 MM in DEXT 5% WATER 243.3333 ML IV NR (11:00)
[2022-03-26] MEDS: ACETAMINOPHEN 325MG TABLET PO PRN (11:30)
[2022-03-26 12:15] LABS: PLATELET ESTIMATE NORMAL
[2022-03-26] MEDS: AZITHROMYCIN 500 MG in DEXT 5% WATER 250 ML IV SCH (17:50)
[2022-03-26] MEDS ORDERED: PNEUMOCOCCAL 23-VAL P-SAC VAC 0.5 ML IM ONE (18:00)
[2022-03-26] MEDS: MONTELUKAST SODIUM 10MG TABLET PO SCH (21:02)
[2022-03-26] MEDS: SENNOSIDES 8.6MG TABLET PO SCH (21:03)
[2022-03-27] VITALS: BP 130/84
[2022-03-27] MEDS: IPRATROPIUM BROMIDE (0.02%) 0.5MG/2.5ML NEB HHN SCH ×6 (00:52→20:48)
[2022-03-27] MEDS: ONDANSETRON HCL 4MG/2ML INJ IV PRN (02:29)
[2022-03-27] MEDS: ACETAMINOPHEN 325MG TABLET PO PRN (02:30)
[2022-03-27 04:00] VITALS: BP 147/80
[2022-03-27 04:08] LABS: HIV SCREEN 4G Non Reactive (Non Reactive)
[2022-03-27 08:03] LABS: HEMOGLOBIN. 10.9 g/dL (12.0-16.0); MEAN CORPUSCULAR HEMOGLOBIN 30.6 pg (28.0-32.0); MEAN CORPUSCULAR VOLUME 89.7 fL (81.0-99.0); MEAN PLATELET VOLUME 8.7 fl (7.4-10.4); PLATELET 123 x1000/uL (130-400); RED BLOOD CELL COUNT 3.56 mill/uL (4.2-5.4); RED CELL DISTRIBUTION WIDTH 17.1 % (11.6-14.6)
[2022-03-27 08:04] VITALS: BP 115/76
[2022-03-27 08:15] LABS: CHLORIDE 104 mEq/L (98-107)
[2022-03-27 08:26] LABS: PHOSPHORUS 2.3 mg/dL (2.5-4.9)
[2022-03-27] MEDS ORDERED: POTASSIUM CHLORIDE 20MEQ TABLET SR PO NR (09:00)
[2022-03-27] MEDS: AMIODARONE HCL 200 MG TABLET PO SCH ×2 (09:37→17:35)
[2022-03-27] MEDS: ASCORBIC ACID 500 MG TABLET PO SCH (09:37)
[2022-03-27] MEDS: METOPROLOL TARTRATE 50MG TABLET PO SCH ×2 (09:38→21:00)
[2022-03-27] MEDS: ZINC SULFATE 220 MG ( 50 ) CAPSULE PO SCH (09:38)
[2022-03-27] MEDS: MIDODRINE HCL 5MG TABLET PO SCH ×3 (09:38→17:35)
[2022-03-27] MEDS: APIXABAN 2.5 MG TABLET PO SCH ×2 (09:39→17:35)
[2022-03-27] MEDS: ARIPIPRAZOLE 5MG TABLET PO SCH (09:39)
[2022-03-27] MEDS: PANTOPRAZOLE 40MG DR TABLET PO SCH (09:39)
[2022-03-27] MEDS: SODIUM CHLORIDE 0.45% 1,000 ML IV SCH (10:00)
[2022-03-27 10:45] LABS: NUCLEATED RED BLOOD CELLS 1 /100 WBC
[2022-03-27 10:46] LABS: PLATELET ESTIMATE SLIGHTLY DECREASED
[2022-03-27] MEDS ORDERED: POTASSIUM CHLORIDE INJ 40 MEQ in DEXT 5% WATER 250 ML IV ONE (11:30)
[2022-03-27] MEDS ORDERED: POTASSIUM CHLORIDE 20MEQ TABLET SR PO SCH (12:00)
[2022-03-27 12:14] VITALS: BP 95/56
[2022-03-27] MEDS ORDERED: SODIUM PHOS,M-BASIC-D-BASIC 15 MM in DEXT 5% WATER 245 ML IV NR (13:00)
[2022-03-27] MEDS: KCL 20MEQ/100ML X 2 FOR TOTAL KCL 40MEQ/200ML IV SCH ×2 (14:26→17:37)
[2022-03-27 16:00] VITALS: BP 118/69
[2022-03-27] MEDS: AZITHROMYCIN 500 MG in DEXT 5% WATER 250 ML IV SCH (19:49)
[2022-03-27 20:00] VITALS: BP 109/68
[2022-03-27] MEDS ORDERED: AZITHROMYCIN 500 MG in DEXT 5% WATER 250 ML IV SCH (21:00)
[2022-03-27] MEDS: MONTELUKAST SODIUM 10MG TABLET PO SCH (21:33)
[2022-03-28] VITALS: BP 124/63
[2022-03-28] MEDS: IPRATROPIUM BROMIDE (0.02%) 0.5MG/2.5ML NEB HHN SCH ×5 (00:31→15:03)
[2022-03-28 04:00] VITALS: BP 99/80
[2022-03-28] MEDS: PANTOPRAZOLE 40MG DR TABLET PO SCH (06:23)
[2022-03-28 06:58] LABS: CHLORIDE 109 mEq/L (98-107)
[2022-03-28 07:09] LABS: HEMATOCRIT. 32.1 % (36.0-48.0); HEMOGLOBIN. 10.9 g/dL (12.0-16.0); MEAN CORPUSCULAR HEMOGLOBIN 30.5 pg (28.0-32.0); MEAN CORPUSCULAR VOLUME 89.9 fL (81.0-99.0); MEAN PLATELET VOLUME 8.8 fl (7.4-10.4); PLATELET 133 x1000/uL (130-400); RED BLOOD CELL COUNT 3.57 mill/uL (4.2-5.4); RED CELL DISTRIBUTION WIDTH 17.5 % (11.6-14.6)
[2022-03-28 08:00] VITALS: BP 136/76
[2022-03-28] MEDS: MIDODRINE HCL 5MG TABLET PO SCH ×2 (09:00→13:00)
[2022-03-28 09:38] LABS: PLATELET ESTIMATE NORMAL
[2022-03-28] MEDS: METOPROLOL TARTRATE 50MG TABLET PO SCH (09:51)
[2022-03-28] MEDS: ZINC SULFATE 220 MG ( 50 ) CAPSULE PO SCH (09:51)
[2022-03-28] MEDS: AMIODARONE HCL 200 MG TABLET PO SCH (09:51)
[2022-03-28] MEDS: ASCORBIC ACID 500 MG TABLET PO SCH (09:51)
[2022-03-28] MEDS: ARIPIPRAZOLE 5MG TABLET PO SCH (09:51)
[2022-03-28] MEDS: APIXABAN 2.5 MG TABLET PO SCH (09:51)
[2022-03-28] MEDS ORDERED: SODIUM PHOS,M-BASIC-D-BASIC 20 MM in DEXT 5% WATER 243.3333 ML IV SCH (10:00)
[2022-03-28 12:00] VITALS: BP 121/69
[2022-03-28 14:28] VITALS: BP 136/76
== END 2022-03-28 15:50 | DRG 871 ==
LOC: ER 13:13 → MICUSO 14:57 → EDBEDREQSVC 15:03 → EDBEDREQ 15:03 → ENRESERV 16:17 → 6WST 03-26 16:24
PROVIDERS: ADMIT Internal Medicine; ATTEND Internal Medicine
PROC: 5A09357 Assistance with Respiratory Ventilation, Less than 24 Consecutive Hours, Continuous Positive Airway Pressure (ICD-10-PCS; principal; 2022-03-20)
PROC: 02HV33Z Insertion of Infusion Device into Superior Vena Cava, Percutaneous Approach (ICD-10-PCS; 2022-03-22)
PROC: B548ZZA Ultrasonography of Superior Vena Cava, Guidance (ICD-10-PCS; 2022-03-22)
PROC: 4A00X4Z Measurement of Central Nervous Electrical Activity, External Approach (ICD-10-PCS; 2022-03-22)
DX: A41.9 Sepsis, unspecified organism (principal); E43 Unspecified severe protein-calorie malnutrition; G93.41 Metabolic encephalopathy; J96.01 Acute respiratory failure with hypoxia; J18.9 Pneumonia, unspecified organism; J96.02 Acute respiratory failure with hypercapnia; I50.33 Acute on chronic diastolic (congestive) heart failure; I21.4 Non-ST elevation (NSTEMI) myocardial infarction; J44.0 Chronic obstructive pulmonary disease with (acute) lower respiratory infection; E87.0 Hyperosmolality and hypernatremia; E87.1 Hypo-osmolality and hyponatremia; E87.3 Alkalosis; I48.20 Chronic atrial fibrillation, unspecified; N17.9 Acute kidney failure, unspecified; R57.9 Shock, unspecified; I13.0 Hypertensive heart and chronic kidney disease with heart failure and stage 1 through stage 4 chronic kidney disease, or unspecified chronic kidney disease; F03.90 Unspecified dementia, unspecified severity, without behavioral disturbance, psychotic disturbance, mood disturbance, and anxiety; F32.A Depression, unspecified; E78.00 Pure hypercholesterolemia, unspecified; R79.89 Other specified abnormal findings of blood chemistry; R80.9 Proteinuria, unspecified; K21.9 Gastro-esophageal reflux disease without esophagitis; E78.5 Hyperlipidemia, unspecified; L89.150 Pressure ulcer of sacral region, unstageable; L89.026 Pressure-induced deep tissue damage of left elbow; E83.39 Other disorders of phosphorus metabolism; R74.01 Elevation of levels of liver transaminase levels; E87.6 Hypokalemia; I25.10 Atherosclerotic heart disease of native coronary artery without angina pectoris; N18.9 Chronic kidney disease, unspecified; R13.10 Dysphagia, unspecified; D64.9 Anemia, unspecified; E11.22 Type 2 diabetes mellitus with diabetic chronic kidney disease; Z20.822 Contact with and (suspected) exposure to COVID-19; Z86.73 Personal history of transient ischemic attack (TIA), and cerebral infarction without residual deficits; Z68.23 Body mass index [BMI] 23.0-23.9, adult; Z79.01 Long term (current) use of anticoagulants; Z79.82 Long term (current) use of aspirin; Z79.899 Other long term (current) drug therapy
CPT/HCPCS: 36415; 36573; 36600; 71045; 71250; 80048; 80053; 80061; 81003; 82040; 82375; 82550; 82553; 82570; 82805; 82962; 83036; 83605; 83735; 83880; 84100; 84132; 84134; 84145; 84156; 84439; 84443; 84484; 85025; 85379; 87389; 87426; 93005; 93306; 93970; 94640; 95816; 99291; C1725; C9803; J0282; J0456; J1120; J1940; J2370; J2405; J2543; J2930; J3370; J3480; J3490; J7030; J7060; J7131